=== PATIENT | female | born 1960 | race Caucasian/White ===

== ENCOUNTER → 2019-10-10 09:48 | Outpatient (CLI) | payer BC, OTHER, SELFPAY | PROVIDERS: Family Provider Family Medicine; PCP Family Medicine; Visit Provider Obstetrics & Gynecology | DX: N95.1 Menopausal and female climacteric states (principal); N39.0 Urinary tract infection, site not specified | CPT/HCPCS: 87480; 87510; 87660 ==

== ENCOUNTER → 2019-10-13 11:50 | Outpatient (CLI) | payer OTHER, SELFPAY ==
--- NOTE | 2019-10-13 11:53 | DI.US.S_ITS ---
PROCEDURE: US PELVIC COMPLETE INDICATIONS: FIBROIDS TECHNIQUE: Real-time scanning was performed of the pelvic organs, with image documentation. Additional endovaginal scanning was necessary due to incomplete visualization of the adnexal and endometrial structures by transabdominal scanning. COMPARISON: None. FINDINGS: Transabdominal scanning: Limited scanning through the kidneys shows no hydronephrosis. No pathologic free abdominal or pelvic fluid. Endovaginal scanning: Uterus: Uterus is normal in size at 6.2 x 4.8 x 5.2 cm. The endometrium measures 2.5 mm in combined thickness. There is a 4.1 x 3.4 x 4.5 cm intramural fibroid in the left uterine wall. A 1.6 x 1.3 x 1.5 cm intramural fibroid is seen in the right posterior uterine wall. Ovaries: A 9 mm simple cyst is noted in the right ovary. Right ovary measures 1.3 x 1.3 x 1.2 cm. Left ovary is not visualized. IMPRESSION: 1. Two uterine leiomyomas. 2. A 9 mm simple cyst in the right ovary. 3. Nonvisualization of right ovary. Dictated by: Anamika Brody M.D. on 10/13/2019 at 14:46 Approved by: Anamika Brody M.D. on 10/13/2019 at 14:50
== END ==
PROVIDERS: Family Provider Family Medicine; PCP Family Medicine; Visit Provider Obstetrics & Gynecology
DX: R10.2 Pelvic and perineal pain (principal); D25.1 Intramural leiomyoma of uterus; N83.291 Other ovarian cyst, right side
CPT/HCPCS: 76830; 76856

== ENCOUNTER → 2020-04-02 09:24 | Outpatient (CLI) | payer OTHER, SELFPAY ==
[2020-04-02 11:13] LABS: Add Manual Diff / Slide Review NO; Basophils Absolute Auto 0 /uL (0-100); Eosinophils Absolute Auto 0 /uL (0-450); Eosinophils Percent Auto 0.6 % (2-4); Hematocrit 40.3 % (36-46); Hemoglobin 13.7 g/dL (12.0-16.0); Lymphocytes Absolute Auto 1600 /uL (1100-4500); Lymphocytes Percent Auto 47.3 % (25-40); Mean Corpuscular HGB Conc 34.1 % (30-36); Mean Corpuscular Hemoglobin 32.5 PG (26-34); Mean Corpuscular Volume 95.4 fL (80-100); Monocytes Absolute Auto 300 /uL (0-900); Monocytes Percent Auto 8.5 % (3-14); Neutrophils Absolute Auto 1400 /uL (1500-7000); Neutrophils Percent Auto 42.6 % (50-75); Platelet Count 356 X10^3/uL (150-400); Red Blood Cell Count 4.23 X10^6/uL (4.0-5.2); Red Cell Distribution Width 12.6 % (11.6-14.8); White Blood Cell Count 3.3 X10^3/uL (4.5-11.0)
[2020-04-02 11:47] LABS: BUN Creatinine Ratio 18.8 (6-22); Blood Urea Nitrogen 9 mg/dL (7-17); Calcium 9.6 mg/dL (8.4-10.2); Carbon Dioxide 26 mmol/L (22-32); Chloride 104 mmol/L (98-107); Estimated Glomerular Filt Rate > 60.0 mL/min (>60); Glucose 89 mg/dL (80-110); HEMOLYSIS < 15 (0-50); Magnesium 2.2 mg/dL (1.6-2.3); Potassium 4.4 mmol/L (3.4-5.1); Sodium 137 mmol/L (137-145)
[2020-04-02 13:48] LABS: TSH w/ Reflex to FT4 1.34 uIU/mL (0.47-4.68)
[2020-04-02 13:49] LABS: Free T4, Direct Thyroxine 1.02 ng/dL (0.78-2.19)
== END ==
PROVIDERS: Family Provider Family Medicine; PCP Family Medicine; Referring Provider Obstetrics & Gynecology; Visit Provider Obstetrics & Gynecology
DX: Z00.00 Encounter for general adult medical examination without abnormal findings (principal)
CPT/HCPCS: 36415; 80048; 83735; 84439; 84443; 85025

== ENCOUNTER → 2020-04-04 11:56 | Outpatient (CLI) | payer OTHER, SELFPAY ==
--- NOTE | 2020-04-04 11:58 | DI.US.S_ITS ---
PROCEDURE: US THYROID INDICATIONS: ENLARGED THYROID TECHNIQUE: Real-time scanning was performed of the thyroid gland, with image documentation. COMPARISON: None. FINDINGS: Right: Thyroid lobe measures 6.3 x 2.5 x 2.5 cm, and is diffusely heterogeneous in echotexture. Left: Thyroid lobe measures 4.6 x 1.3 x 1.3 cm, and is diffusely heterogeneous in echotexture. Isthmus: 2.3 mm thick. Nodule number: 1 Location: Left mid Size: 1.2 x 0.6 x 0.8 cm. Composition: Solid Echogenicity: Hypoechoic Shape: wider than tall. Margins: Smooth Echogenic foci: None Total points: 4 ACR TI-RADS category: Moderately suspicious Nodule number: 2 Location: Left superior Size: 0.6 x 0.4 x 0.4 cm. Composition: Solid Echogenicity: Hypoechoic Shape: wider than tall. Margins: Smooth Echogenic foci: None Total points: 4 ACR TI-RADS category: Moderately suspicious Nodule number: 3 Location: Right mid and inferior Size: 4.0 x 2.1 x 2.7 cm. Composition: Solid Echogenicity: Isoechoic Shape: wider than tall. Margins: Smooth Echogenic foci: None Total points: 3 ACR TI-RADS category: Mildly suspicious Nodule number: 4 Location: Right mid Size: 1.5 x 0.7 x 1.3 cm. Composition: Solid Echogenicity: Hypoechoic Shape: wider than tall. Margins: Smooth Echogenic foci: None Total points: 4 ACR TI-RADS category: Moderately suspicious IMPRESSION: Bilateral thyroid nodules as above. Recommend sonographically directed fine needle aspiration involving the right # 3 nodule. ACR TI-RADS definitions and recommendations: TI-RADS 1 (benign): 0 points. FNA not needed. TI-RADS 2 (not suspicious): 2 points. FNA not needed. TI-RADS 3 (mildly suspicious): 3 points. * FNA if 2.5 cm or larger, follow up if 1.5 cm or larger (at 1, 3, and 5 years). TI-RADS 4 (moderately suspicious): 4-6 points. * FNA if 1.5 cm or larger, follow up if 1 cm or larger (at 1, 2, 3, and 5 years). TI-RADS 5 (highly suspicious): 7 points or more. * FNA if 1 cm or larger, follow up if 0.5 cm or larger (every year for 5 years). Dictated by: Chilo ROBERT Interpreted: Freddy Jama MD on 04/04/2020 at 13:36 Approved by: Freddy Jama M.D. on 04/04/2020 at 15:49
== END ==
PROVIDERS: Family Provider Family Medicine; PCP Family Medicine; Referring Provider Obstetrics & Gynecology; Visit Provider Obstetrics & Gynecology
DX: E04.2 Nontoxic multinodular goiter (principal)
CPT/HCPCS: 76536

== ENCOUNTER → 2020-05-14 09:55 | Outpatient (CLI) | payer OTHER, SELFPAY ==
[2020-05-15 19:13] LABS: COVID19 Sendout Not Detected (Not Detect)
== END ==
PROVIDERS: Family Provider Family Medicine; PCP Family Medicine; Visit Provider Physician Assistant
DX: Z11.9 Encounter for screening for infectious and parasitic diseases, unspecified (principal)
CPT/HCPCS: 87635

== ENCOUNTER → 2020-06-06 11:57 | Outpatient (CLI) | payer OTHER, SELFPAY ==
--- NOTE | 2020-06-06 12:19 | DI.MG.S_ITS ---
Patient Name: BIB SIDHU date: 1960 Sex: F Attending Physician: Gerda Indications: Date: 06/06/2020 12:26 At the request of: DAHIANA BELL Procedure: MM screening mammo BI BILATERAL DIGITAL SCREENING MAMMOGRAM 3D/2D WITH CAD: 06/06/2020 CLINICAL: Routine screening. Comparison is made to exams dated: 12/09/2018 mammogram, 12/23/2017 mammogram, and 09/02/2016 mammogram - [facility]. There are scattered fibroglandular elements in both breasts. Current study was also evaluated with a Computer Aided Detection (CAD) system. There is a benign calcification in the right breast. No significant masses, calcifications, or other findings are seen in either breast. There has been no significant interval change. IMPRESSION: BENIGN There is no mammographic evidence of malignancy. A 1 year screening mammogram is recommended. This exam was interpreted at Station ID: [id number]. NOTE: For mammograms, a report in lay terms will be sent to the patient. Approximately 15% of breast malignancies will not be visualized mammographically. In the management of a palpable breast mass, a negative mammogram must not discourage biopsy of a clinically suspicious lesion. Electronically Signed By: Feliberto [email or web address]:06/06/2020 13:24:41 letter sent: Normal Exam ACR BI-RADS Category 2: Benign Finding(s) 3342F
== END ==
PROVIDERS: Family Provider Family Medicine; PCP Obstetrics & Gynecology; Referring Provider Obstetrics & Gynecology; Visit Provider Obstetrics & Gynecology
DX: Z12.31 Encounter for screening mammogram for malignant neoplasm of breast (principal)
CPT/HCPCS: 77063; 77067

== ENCOUNTER → 2020-07-04 11:35 | Outpatient (CLI) | payer OTHER, SELFPAY ==
[2020-07-04 11:41] LABS: Bacteria Urine None Seen; RBC Urine None Seen (0-5/HPF)
[2020-07-04 13:01] LABS: Appearance Urine UA CLEAR; Bilirubin Urine UA NEGATIVE (NEGATIVE); Color Urine UA YELLOW; Glucose Urine UA NEGATIVE (Negative); Ketones Urine UA NEGATIVE (NEGATIVE); Leukocyte Esterase Urine UA NEGATIVE (NEGATIVE); Nitrite Urine UA NEGATIVE (Negative); Occult Blood Urine UA NEGATIVE (Negative); Protein Urine UA NEGATIVE (Negative); Specific Gravity Urine UA <=1.005 (1.000-1.035); Urobilinogen Urine UA 0.2 E.U./dL (0.2)
[2020-07-04 13:25] LABS: Squamous Epithelial Cell Urine 0-1 /HPF (0-5/HPF); WBC Urine 0-1/HPF (0-5/HPF)
== END ==
PROVIDERS: Family Provider Family Medicine; PCP Family Medicine; Referring Provider Obstetrics & Gynecology; Visit Provider Obstetrics & Gynecology
DX: R30.0 Dysuria (principal)
CPT/HCPCS: 81001; 87086

== ENCOUNTER → 2020-07-12 14:17 | Outpatient (CLI) | payer OTHER, SELFPAY ==
[2020-07-14 09:30] LABS: COVID19 Sendout Not Detected (Not Detect)
== END ==
PROVIDERS: Family Provider Family Medicine; PCP Family Medicine; Visit Provider Physician Assistant
DX: Z11.59 Encounter for screening for other viral diseases (principal)
CPT/HCPCS: 87635

== ENCOUNTER → 2020-08-16 16:27 | Outpatient (CLI) | payer OTHER, SELFPAY | PROVIDERS: Family Provider Family Medicine; PCP Family Medicine; Visit Provider Obstetrics & Gynecology | DX: R39.89 Other symptoms and signs involving the genitourinary system (principal); T81.9XXA Unspecified complication of procedure, initial encounter | CPT/HCPCS: 87070; 87205 ==

== ENCOUNTER 2020-11-06 12:36 | Emergency (ER) | payer OTHER, SELFPAY ==
[2020-11-06] VITALS (10 sets, daily range): BP systolic 114–154; BP diastolic 56–71; PULSE 77–103; RESP 13–21; TEMP 37; O2SAT 95–99
--- NOTE | 2020-11-06 12:53 | DI.RAD.S_ITS ---
PROCEDURE: XR CHEST 1V INDICATIONS: chest pain TECHNIQUE: One view of the chest was acquired. COMPARISON: None. FINDINGS: Surgical changes and devices: None. Lungs and pleura: Lungs are clear. No pleural effusions or pneumothorax. Mediastinum: Mediastinal contours appear normal. Heart size is normal. Bones and chest wall: No suspicious bony lesions. Overlying soft tissues appear unremarkable. IMPRESSION: No acute cardiopulmonary pathology. Dictated by: Charli To M.D. on 11/06/2020 at 13:00 Approved by: Charli To M.D. on 11/06/2020 at 13:11
[2020-11-06 13:23] LABS: Add Manual Diff / Slide Review NO; Basophils Absolute Auto 0 /uL (0-100); Basophils Percent Auto 0.8 % (0-2); Eosinophils Absolute Auto 0 /uL (0-450); Eosinophils Percent Auto 0.2 % (2-4); Hematocrit 41.9 % (36-46); Hemoglobin 13.9 g/dL (12.0-16.0); Lymphocytes Absolute Auto 1100 /uL (1100-4500); Lymphocytes Percent Auto 23.2 % (25-40); Mean Corpuscular HGB Conc 33.2 % (30-36); Mean Corpuscular Hemoglobin 31.6 PG (26-34); Monocytes Absolute Auto 400 /uL (0-900); Monocytes Percent Auto 8.9 % (3-14); Neutrophils Absolute Auto 3100 /uL (1500-7000); Neutrophils Percent Auto 66.9 % (50-75); Platelet Count 387 X10^3/uL (150-400); Red Blood Cell Count 4.41 X10^6/uL (4.0-5.2); Red Cell Distribution Width 12.7 % (11.6-14.8); White Blood Cell Count 4.6 X10^3/uL (4.5-11.0)
[2020-11-06 13:35] LABS: INR 1.1 (0.9-1.3); Prothrombin Time 12.5 SECONDS (10.1-12.7)
[2020-11-06 13:37] LABS: PTT Partial Thromboplastin Tim 32 SECONDS (26.4-36.2)
[2020-11-06 13:40] LABS: Alanine Aminotransferase 20 IU/L (<35); Albumin 4.7 g/dL (3.5-5.0); Albumin Globulin Ratio 1.3 (1.0-2.8); Alkaline Phosphatase 56 U/L (38-126); Aspartate Aminotransferase 29 IU/L (14-36); Bilirubin Total 0.6 mg/dL (0.2-1.3); Blood Urea Nitrogen 10 mg/dL (7-17); Calcium 9.3 mg/dL (8.4-10.2); Carbon Dioxide 27 mmol/L (22-32); Chloride 101 mmol/L (98-107); Creatine Kinase 82 U/L (30-135); Estimated Glomerular Filt Rate > 60.0 mL/min (>60); Globulin 3.6 g/dL (1.7-4.1); Glucose 95 mg/dL (80-110); HEMOLYSIS < 15 (0-50); Lipase 120 U/L (23-300); Potassium 3.7 mmol/L (3.4-5.1); Sodium 137 mmol/L (137-145); Total Protein 8.3 g/dL (6.3-8.2)
[2020-11-06 13:52] LABS: Troponin I < 0.012 ng/mL (0.01-0.034)
--- NOTE | 2020-11-06 14:16 | PC.NURSE ---
Reports numbness/tingling sensation to face, mouth and throat since receiving COVID vaccine last week. States its like when you are numb at the dentist and the feeling starts coming back. Also reports intermittently feeling heart racing.
--- NOTE | 2020-11-06 14:46 | ED_ITS ---
HPI - Arrhythmia/Palpitations <Pricila Magaña PA-C - Last Filed: 11/06/20 17:54> General Chief Complaint: Arrhythmia/Palpitations Stated Complaint: face tingling, tongue tingling, shakey, heart palp Time Seen by Provider: 11/06/20 14:04 Source: patient Mode of arrival: Ambulatory History of Present Illness HPI narrative: This is a well-appearing 60-year-old woman with a history of hypokalemia, rectal prolapse and pelvic floor surgery (3 months ago), Meniere's disease, who presents complaining of tingling sensation in her cheeks and tongue, sometimes into her arms hands and legs, intermittent palpitations, and an episode of feeling very weak and shaky today at home. She states that other than the episode of feeling weak and shaky all of her other symptoms are symptoms she has had in the past on and off she notes she has previously had low potassium levels that cause similar symptoms. She also notes that she got a COVID vaccine last week and she did have a reaction to it that included tingling sensation in her cheeks and tongue that was relieved with Benadryl. She denies syncope, chest pain, dizziness, one-sided weakness, speech change, headache, nausea, vomiting, diarrhea fevers, chills, fatigue or any other symptoms. Her notes he thinks she may have more anxiety than she realizes MD complaint: palpitations Onset (ago): week(s) Duration: intermittent Severity: similar to previous episodes Context: occurred during rest Arrhythmia history: other (History of hypokalemia) Associated symptoms: paresthesias (Cheeks, tongue and sometimes hands arms and legs) and other Related Data Home Medications Medication Instructions Recorded Confirmed spironolactone 25 mg QDAY #0 01/10/18 08/16/20 meclizine 12.5 mg tablet 12.5 mg PO DAILY PRN 04/18/20 08/16/20 vitamin B complex 1 tab PO DAILY 04/18/20 08/16/20 Previous Rx's Medication Instructions Recorded conjugated estrogens 0.625 mg/gram 0.625 mg VAG DAILY #30 gram 04/02/20 vaginal cream hydroxyzine HCl 25 mg PO TID PRN #60 tab 11/06/20 Allergies Allergy/AdvReac Type Severity Reaction Status Date / Time metronidazole [From Flagyl] AdvReac GI symptoms Verified 08/16/20 15:40 No Known Allergies Allergy Uncoded 08/16/20 15:40 Review of Systems <Prciila Magaña PA-C - Last Filed: 11/06/20 17:54> Review of Systems Narrative: GENERAL: Denies chills, fatigue, malaise, fever, sweats. HEENT: Denies sinus pain, ear pain, sore throat, difficulty swallowing, dizziness. RESPIRATORY: Denies dyspnea, cough, wheezing, hemoptysis, sputum. CARDIOVASCULAR: Denies chest pain, endorses intermittent palpitations, denies orthopnea, edema, GASTROINTESTINAL: Denies nausea, vomiting, abdominal pain, diarrhea, constipation, melena. : Denies dysuria, frequency, incontinence, hematuria, urinary retention. MUSCULOSKELETAL: denies weakness, joint pain, or bony pain SKIN: Denies rash, skin lesions, or other NEUROLOGIC: Denies weakness, headache, numbness, change in speech, confusion, seizures, incoordination, endorses tingling sensation in her cheeks and tongue, also sometimes in her arms hands and feet sometimes. PSYCHIATRIC: No concerning psychosocial issues. 12 point review of systems is negative except for those stated above ROS Unobtainable: All systems reviewed & are unremarkable except as noted in HPI and below Patient History <Pricila Magaña PA-C - Last Filed: 11/06/20 17:54> Medical History (Updated 11/06/20 @ 16:31 by Pricila Magaña PA-C) Abnormal Pap smear of cervix Frequent UTI H/O vaginal delivery Hearing loss Vision disorder Surgical History Anesthesia Breast tumor (~1982) Family History Mother History of heart disease Stroke Grandfather Cancer Social History marital status: household members: spouse occupational status: previously employed Smoking Status: Never smoker alcohol intake: current substance use type: does not use Smoking Status: Never smoker alcohol intake frequency: a few times a month Substance Use Type: does not use Exam <Pricila Magaña PA-C - Last Filed: 11/06/20 17:54> Narrative Exam Narrative: GENERAL: 60 year old patient appears stated age. Well-nourished, well-developed patient, in mild distress. HEAD: Atraumatic. Normocephalic. EYES: Pupils equal round and reactive. Extraocular motions intact. No scleral icterus. No injection or drainage. ENT: Nose without bleeding, purulent drainage. Throat without erythema, tonsillar hypertrophy or exudate. Airway patent. NECK: Trachea midline. Non tender CARDIOVASCULAR: Regular rate and rhythm without murmurs, gallops, or rubs. RESPIRATORY: Clear to auscultation. Breath sounds equal bilaterally. No wheezes, rales, or rhonchi. GASTROINTESTINAL: Abdomen soft, there is very slight tenderness in the abdomen low on the left side otherwise non-tender, nondistended. EXTREMITIES: No edema or joint tenderness. BACK: Nontender without deformity or crepitance. No flank tenderness. NEURO: AOx3. CN II-XII intact, facial sensation is intact, normal speech, gait, coordination. SKIN: No rash or erythema of visible areas Initial Vital Signs Initial Vital Signs: Vital Signs Temperature 98.6 F 11/06/20 12:50 Pulse Rate 103 H 11/06/20 12:50 Respiratory Rate 18 11/06/20 12:50 Blood Pressure 154/71 H 11/06/20 12:50 Pulse Oximetry 98 11/06/20 12:50 <Susy Brownlee DO - Last Filed: 11/07/20 12:36> Initial Vital Signs Initial Vital Signs: Vital Signs Temperature 98.6 F 11/06/20 12:50 Pulse Rate 103 H 11/06/20 12:50 Respiratory Rate 18 11/06/20 12:50 Blood Pressure 154/71 H 11/06/20 12:50 Pulse Oximetry 98 11/06/20 12:50 Course <Pricila Magaña PA-C - Last Filed: 11/06/20 17:54> Orders Ordered: ED Orders 11/06/20 12:53 XR chest 1V Stat EKG-12 Lead Stat 11/06/20 13:10 Complete Blood Count AUTO DIFF Stat Comprehensive Metabolic Panel Stat Lipase Stat Partial Thromboplastin Time Stat Prothrombin Time INR Stat Thyroid Stimulating Hormone Stat Troponin & CK Cardiac Panel Stat Vital Signs Vital signs: Vital Signs - 8 hr 11/06/20 12:50 11/06/20 13:47 11/06/20 14:00 Temperature 98.6 F Pulse Rate 103 H 80 77 Respiratory Rate 18 18 Blood Pressure 154/71 H 117/56 L Pulse Oximetry 98 98 99 11/06/20 14:24 11/06/20 14:30 11/06/20 15:00 Temperature Pulse Rate 87 80 79 Respiratory Rate 20 15 13 Blood Pressure 115/58 L 114/58 L 128/61 Pulse Oximetry 98 97 96 11/06/20 15:30 11/06/20 16:00 11/06/20 16:30 Temperature Pulse Rate 77 78 81 Respiratory Rate 13 15 21 Blood Pressure 119/60 114/58 L 126/58 L Pulse Oximetry 95 98 99 11/06/20 17:00 Temperature Pulse Rate 79 Respiratory Rate 16 Blood Pressure Pulse Oximetry 97 <Susy Brownlee DO - Last Filed: 11/07/20 12:36> Orders Ordered: ED Orders 11/06/20 12:53 XR chest 1V Stat EKG-12 Lead Stat 11/06/20 13:10 Complete Blood Count AUTO DIFF Stat Comprehensive Metabolic Panel Stat Lipase Stat Partial Thromboplastin Time Stat Prothrombin Time INR Stat Thyroid Stimulating Hormone Stat Troponin & CK Cardiac Panel Stat Vital Signs Vital signs: Vital Signs - 8 hr 11/06/20 12:50 11/06/20 13:47 11/06/20 14:00 Temperature 98.6 F Pulse Rate 103 H 80 77 Respiratory Rate 18 18 Blood Pressure 154/71 H 117/56 L Pulse Oximetry 98 98 99 11/06/20 14:24 11/06/20 14:30 11/06/20 15:00 Temperature Pulse Rate 87 80 79 Respiratory Rate 20 15 13 Blood Pressure 115/58 L 114/58 L 128/61 Pulse Oximetry 98 97 96 11/06/20 15:30 11/06/20 16:00 11/06/20 16:30 Temperature Pulse Rate 77 78 81 Respiratory Rate 13 15 21 Blood Pressure 119/60 114/58 L 126/58 L Pulse Oximetry 95 98 99 11/06/20 17:00 Temperature Pulse Rate 79 Respiratory Rate 16 Blood Pressure Pulse Oximetry 97 MDM - Arrhythmia/Palpitations <Pricila Magaña PA-C - Last Filed: 11/06/20 17:54> Differential Diagnosis Differential diagnosis: Likely palpitations, anxiety, artial fibrillation, ventricular premature beats, supraventricular tachycardia and other (Anxiety, vaccine reaction, viral illness) Medical Records Attestation: I reviewed the patient's medical records. Lab Data Attestation: I reviewed the patient's lab results. Result diagrams: 11/06/20 13:10 11/06/20 13:10 Labs: Lab Results 11/06/20 11/06/20 11/06/20 Range/Units 13:10 13:10 13:10 WBC 4.6 (4.5-11.0) X10^3/uL RBC 4.41 (4.0-5.2) X10^6/uL Hgb 13.9 (12.0-16.0) g/dL Hct 41.9 (36-46) % MCV 95.0 (80-100) fL MCH 31.6 (26-34) PG MCHC 33.2 (30-36) % RDW 12.7 (11.6-14.8) % Plt Count 387 (150-400) X10^3/uL Neut % (Auto) 66.9 (50-75) % Lymph % (Auto) 23.2 L (25-40) % [place] % (Auto) 8.9 (3-14) % Eos % (Auto) 0.2 L (2-4) % Baso % (Auto) 0.8 (0-2) % Neut # (Auto) 3100 (8757-3836) /uL Lymph # (Auto) 1100 (5208-9744) /uL [place] # (Auto) 400 (0-900) /uL Eos # (Auto) 0 (0-450) /uL Baso # (Auto) 0 (0-100) /uL PT 12.5 (10.1-12.7) SECONDS INR 1.1 (0.9-1.3) APTT 32 (26.4-36.2) SECONDS Sodium 137 (137-145) mmol/L Potassium 3.7 (3.4-5.1) mmol/L Chloride 101 (98-107) mmol/L Carbon Dioxide 27 (22-32) mmol/L BUN 10 (7-17) mg/dL Creatinine 0.50 L (0.52-1.04) mg/dL Estimated GFR > 60.0 (>60) mL/min BUN/Creatinine Ratio 20.0 (6-22) Glucose 95 (80-110) mg/dL Calcium 9.3 (8.4-10.2) mg/dL Total Bilirubin 0.6 (0.2-1.3) mg/dL AST 29 (14-36) IU/L ALT 20 (<35) IU/L Alkaline Phosphatase 56 (38-126) U/L Total Creatine Kinase 82 (30-135) U/L CK-MB (CK-2) TNP CK-MB (CK-2) Rel Index TNP Troponin I < 0.012 (0.01-0.034) ng/mL Total Protein 8.3 H (6.3-8.2) g/dL Albumin 4.7 (3.5-5.0) g/dL Globulin 3.6 (1.7-4.1) g/dL Albumin/Globulin Ratio 1.3 (1.0-2.8) Lipase 120 (23-300) U/L TSH (0.47-4.68) uIU/mL 11/06/20 Range/Units 13:10 WBC (4.5-11.0) X10^3/uL RBC (4.0-5.2) X10^6/uL Hgb (12.0-16.0) g/dL Hct (36-46) % MCV (80-100) fL MCH (26-34) PG MCHC (30-36) % RDW (11.6-14.8) % Plt Count (150-400) X10^3/uL Neut % (Auto) (50-75) % Lymph % (Auto) (25-40) % [place] % (Auto) (3-14) % Eos % (Auto) (2-4) % Baso % (Auto) (0-2) % Neut # (Auto) (5511-5478) /uL Lymph # (Auto) (5635-6947) /uL [place] # (Auto) (0-900) /uL Eos # (Auto) (0-450) /uL Baso # (Auto) (0-100) /uL PT (10.1-12.7) SECONDS INR (0.9-1.3) APTT (26.4-36.2) SECONDS Sodium (137-145) mmol/L Potassium (3.4-5.1) mmol/L Chloride (98-107) mmol/L Carbon Dioxide (22-32) mmol/L BUN (7-17) mg/dL Creatinine (0.52-1.04) mg/dL Estimated GFR (>60) mL/min BUN/Creatinine Ratio (6-22) Glucose (80-110) mg/dL Calcium (8.4-10.2) mg/dL Total Bilirubin (0.2-1.3) mg/dL AST (14-36) IU/L ALT (<35) IU/L Alkaline Phosphatase (38-126) U/L Total Creatine Kinase (30-135) U/L CK-MB (CK-2) CK-MB (CK-2) Rel Index Troponin I (0.01-0.034) ng/mL Total Protein (6.3-8.2) g/dL Albumin (3.5-5.0) g/dL Globulin (1.7-4.1) g/dL Albumin/Globulin Ratio (1.0-2.8) Lipase (23-300) U/L TSH 0.973 (0.47-4.68) uIU/mL ECG Data Attestation: I personally reviewed and interpreted this ECG as follows: Interpretation: Normal sinus rhythm 86 beats per minute, incomplete right bundle-branch block, MO interval 142, QRS 98, QT 376/QTC 449, P axis 59 are axis 8? T axis 54 MDM Narrative Medical decision making narrative: This is a very well-appearing 60-year-old woman who presents with multiple complaints including an episode of feeling weak and shaky earlier today, palpitations on and off for days, intermittent numbness and tingling feeling in her cheeks and tongue on both sides, occasional tingling feeling in her hands arms and feet and concerned that she may have low potassium or be reacting to the vaccine she received last week for COVID. She has a unremarkable neuro exam, unremarkable exam in general, labs also return unremarkable patient notes she took potassium supplement OTC yesterday and today. It is certainly possible that she could have had some mild hypokalemia to account for some of her symptoms and that her self administration increased her to a normal level today she is 3.7. I advised her it is reasonable to take a few more doses of potassium if she likes but she should not continue this on a regular basis without talking to her primary care provider. She is also notably on spironolactone for menieres. She has no symptoms suggestive of a CVA or TIA. Did have a similar-type symptoms of numbness and tingling in her tongue and face with slight facial swelling on 1 side after receiving COVID vaccine last week relieved by Benadryl. I think it is unlikely that the patient's symptoms today are connected with vaccine administration a week ago however it is potentially possible. Patient was on the monitor in the emergency department for hours with no abnormalities seen except an occasional PVC. EKG also u nremarkable. Chest x-ray unremarkable. I have low suspicion for cardiac etiology for this patient's symptoms. Quite possible that some of her symptoms are due to anxiety, discussed this with the patient and she feels this might be possible, have prescribed hydroxyzine as needed for her to see if this improves her symptoms as she did get relief with Benadryl at home previously. Advised her that she can take Benadryl if she feels that she is having any swelling or develops a rash or any airway distress should she should seek medical care immediately. Discussed emergency return precautions, follow-up plan, all questions answered. <Susy Brownlee, DO - Last Filed: 11/07/20 12:36> Lab Data Attestation: I reviewed the patient's lab results. Labs: Lab Results 11/06/20 11/06/20 11/06/20 Range/Units 13:10 13:10 13:10 WBC 4.6 (4.5-11.0) X10^3/uL RBC 4.41 (4.0-5.2) X10^6/uL Hgb 13.9 (12.0-16.0) g/dL Hct 41.9 (36-46) % MCV 95.0 (80-100) fL MCH 31.6 (26-34) PG MCHC 33.2 (30-36) % RDW 12.7 (11.6-14.8) % Plt Count 387 (150-400) X10^3/uL Neut % (Auto) 66.9 (50-75) % Lymph % (Auto) 23.2 L (25-40) % [place] % (Auto) 8.9 (3-14) % Eos % (Auto) 0.2 L (2-4) % Baso % (Auto) 0.8 (0-2) % Neut # (Auto) 3100 (2372-9135) /uL Lymph # (Auto) 1100 (8691-2162) /uL [place] # (Auto) 400 (0-900) /uL Eos # (Auto) 0 (0-450) /uL Baso # (Auto) 0 (0-100) /uL PT 12.5 (10.1-12.7) SECONDS INR 1.1 (0.9-1.3) APTT 32 (26.4-36.2) SECONDS Sodium 137 (137-145) mmol/L Potassium 3.7 (3.4-5.1) mmol/L Chloride 101 (98-107) mmol/L Carbon Dioxide 27 (22-32) mmol/L BUN 10 (7-17) mg/dL Creatinine 0.50 L (0.52-1.04) mg/dL Estimated GFR > 60.0 (>60) mL/min BUN/Creatinine Ratio 20.0 (6-22) Glucose 95 (80-110) mg/dL Calcium 9.3 (8.4-10.2) mg/dL Total Bilirubin 0.6 (0.2-1.3) mg/dL AST 29 (14-36) IU/L ALT 20 (<35) IU/L Alkaline Phosphatase 56 (38-126) U/L Total Creatine Kinase 82 (30-135) U/L CK-MB (CK-2) TNP CK-MB (CK-2) Rel Index TNP Troponin I < 0.012 (0.01-0.034) ng/mL Total Protein 8.3 H (6.3-8.2) g/dL Albumin 4.7 (3.5-5.0) g/dL Globulin 3.6 (1.7-4.1) g/dL Albumin/Globulin Ratio 1.3 (1.0-2.8) Lipase 120 (23-300) U/L TSH (0.47-4.68) uIU/mL 11/06/20 Range/Units 13:10 WBC (4.5-11.0) X10^3/uL RBC (4.0-5.2) X10^6/uL Hgb (12.0-16.0) g/dL Hct (36-46) % MCV (80-100) fL MCH (26-34) PG MCHC (30-36) % RDW (11.6-14.8) % Plt Count (150-400) X10^3/uL Neut % (Auto) (50-75) % Lymph % (Auto) (25-40) % [place] % (Auto) (3-14) % Eos % (Auto) (2-4) % Baso % (Auto) (0-2) % Neut # (Auto) (8089-6617) /uL Lymph # (Auto) (5487-8125) /uL [place] # (Auto) (0-900) /uL Eos # (Auto) (0-450) /uL Baso # (Auto) (0-100) /uL PT (10.1-12.7) SECONDS INR (0.9-1.3) APTT (26.4-36.2) SECONDS Sodium (137-145) mmol/L Potassium (3.4-5.1) mmol/L Chloride (98-107) mmol/L Carbon Dioxide (22-32) mmol/L BUN (7-17) mg/dL Creatinine (0.52-1.04) mg/dL Estimated GFR (>60) mL/min BUN/Creatinine Ratio (6-22) Glucose (80-110) mg/dL Calcium (8.4-10.2) mg/dL Total Bilirubin (0.2-1.3) mg/dL AST (14-36) IU/L ALT (<35) IU/L Alkaline Phosphatase (38-126) U/L Total Creatine Kinase (30-135) U/L CK-MB (CK-2) CK-MB (CK-2) Rel Index Troponin I (0.01-0.034) ng/mL Total Protein (6.3-8.2) g/dL Albumin (3.5-5.0) g/dL Globulin (1.7-4.1) g/dL Albumin/Globulin Ratio (1.0-2.8) Lipase (23-300) U/L TSH 0.973 (0.47-4.68) uIU/mL ECG Data Attestation: I personally reviewed and interpreted this ECG as follows: Prior ECG tracings: not available for review Interpretation: Normal sinus rhythm incomplete right bundle nonspecific change patient does not have priors for comparison. Rate of 85 MO 142, QRS 98 QTC 449. Discharge Plan Departure Patient Disposition: Home Clinical Impression: Facial tingling, Heart palpitations Activity Restrictions/Additional Instructions: Thank you for letting us be part of your care in the emergency department today. Based on your history of having low potassium I was concerned that might be go ing on today however there is no evidence of that all of your labs are actually looking very good. I also checked her thyroid today and this is in the normal range. I am not sure what the cause of your symptoms is and I would recommend following up with your primary care provider and potentially neurology if they recommend that or if you have ongoing symptoms. Certainly if you feel your symptoms are worsening do not hesitate to return or get rechecked. I recommend that you stay hydrated, it is possible but unlikely that your symptoms are associated with the vaccination he received last week for COVID but it sounds like most of the symptoms are symptoms he had previously in the past and I think we cannot make the assumption that white your experiencing recently is due to the vaccination you had. Regarding your heart be feeling like it is going fast, we did do an EKG today that looked all right and we also checked her cardiac enzymes, we also have had you on the monitor in the emergency department during her stay and we did not see any arrhythmias. I also recommend you talk to her primary care provider if you would like to consider seeing Cardiology for further evaluation sometimes it is appropriate to wear a Holter monitor to evaluate for cardiac arrhythmias over a longer period of time. There is no evidence of an emergent or life threatening illness at this time, but follow up with your doctor in 1-2 days is recommended nonetheless to continue to rule out serious underlying causes of your symptoms. Please call the office for an appointment. Please return to the Emergency Department for any worsening or persistent symptoms. Please take medications as directed. Prescriptions: New hydroxyzine HCl 25 mg tablet 25 mg PO TID PRN (Reason: anxiety) Qty: 60 RF: 0 No Action spironolactone 25 MG tablet 25 mg QDAY Qty: 0 RF: 0 Premarin 0.625 mg/gram cream 0.625 mg VAG DAILY Qty: 30 RF: 2 vitamin B complex [B Complex-Vitamin B12] Tablet 1 tab PO DAILY RF: 0 meclizine 12.5 mg tablet 12.5 mg PO DAILY PRNRF: 0 Referrals: Candy Mercado PA-C [Primary Care Provider] - <Susy Borwnlee DO - Last Filed: 11/07/20 12:36> Cosign ED Attending Cosignature Attestation: I was immediately available in the department for consultation. Documentation has been reviewed.
[2020-11-06 15:53] LABS: Thyroid Stimulating Hormone 0.973 uIU/mL (0.47-4.68)
== END 2020-11-06 17:10 | disposition home or self-care (01) ==
PROVIDERS: Emergency Medicine; Emergency Provider Student in an Organized Health Care Education/Training Program; Family Provider Family Medicine; PCP Physician Assistant Medical
DX: R20.2 Paresthesia of skin (principal); R00.2 Palpitations; R07.9 Chest pain, unspecified; R79.89 Other specified abnormal findings of blood chemistry; Z86.39 Personal history of other endocrine, nutritional and metabolic disease; Z87.19 Personal history of other diseases of the digestive system
CPT/HCPCS: 36415; 71045; 80053; 82550; 83690; 84443; 84484; 85025; 85610; 85730; 93005; 99283; 99284

== ENCOUNTER → 2021-01-06 16:24 | Outpatient (CLI) | payer OTHER, SELFPAY | PROVIDERS: Family Provider Family Medicine; PCP Physician Assistant Medical; Visit Provider Obstetrics & Gynecology | DX: N95.2 Postmenopausal atrophic vaginitis (principal) | CPT/HCPCS: 87070; 87205 ==

== ENCOUNTER → 2021-01-13 11:55 | Outpatient (CLI) | payer OTHER, SELFPAY ==
--- NOTE | 2021-01-13 11:56 | DI.US.S_ITS ---
PROCEDURE: US PELVIC COMPLETE INDICATIONS: PMB TECHNIQUE: Real-time scanning was performed of the pelvic organs, with image documentation. Additional endovaginal scanning was necessary due to incomplete visualization of the adnexal and endometrial structures by transabdominal scanning. COMPARISON: [facility], PELVIC COMPLETE, 10/13/2019, 12:19. FINDINGS: Uterus: Uterus is retroflexed and normal in size at 5.2 x 6.2 x 4.8 cm. The endometrium is not well seen, partially obscured by dominant uterine fibroids. The visible portion measures less than 2 mm. A dominant intramural fibroid measures 3.9 x 4.0 x 4.3 cm, fairly stable compared to the prior study. A right posterior intramural fibroid measures 1.5 cm in maximal diameter, stable. Ovaries: Neither ovary was seen. Other: No pathologic free abdominal or pelvic fluid. IMPRESSION: 1. Appropriate uterine size for age, but consumed by a dominant 4.3 cm intramural fibroid displacing the endometrium. 2. Small right posterior fibroid measuring 1.5 cm is stable, separate from the endometrial stripe. 3. Nonvisualization of either ovary. Dictated by: Lianet Conner M.D. on 01/13/2021 at 14:10 Approved by: Lianet Conner M.D. on 01/13/2021 at 14:15
== END ==
PROVIDERS: Family Provider Family Medicine; PCP Physician Assistant Medical; Referring Provider Obstetrics & Gynecology; Visit Provider Obstetrics & Gynecology
DX: N95.0 Postmenopausal bleeding (principal); D25.1 Intramural leiomyoma of uterus
CPT/HCPCS: 76830; 76856

== ENCOUNTER → 2021-06-07 07:56 | Outpatient (CLI) | payer OTHER, SELFPAY ==
--- NOTE | 2021-06-07 07:57 | DI.MG.S_ITS ---
BILATERAL DIGITAL SCREENING MAMMOGRAM 3D/2D WITH CAD: 06/07/2021 CLINICAL: Routine screening. Comparison is made to exams dated: 06/06/2020 mammogram - [facility], 12/09/2018 mammogram, and 12/23/2017 mammogram - [facility]. There are scattered fibroglandular elements in both breasts. Current study was also evaluated with a Computer Aided Detection (CAD) system. There is a benign calcification in the right breast. No significant masses, calcifications, or other findings are seen in either breast. There has been no significant interval change. IMPRESSION: BENIGN There is no mammographic evidence of malignancy. A 1 year screening mammogram is recommended. This exam was interpreted at Station ID: [id number]. NOTE: For mammograms, a report in lay terms will be sent to the patient. Approximately 15% of breast malignancies will not be visualized mammographically. In the management of a palpable breast mass, a negative mammogram must not discourage biopsy of a clinically suspicious lesion. Electronically Signed By: Calvin Zhong M.D., [email or web address]/[email or web address]:06/09/2021 09:06:16 letter sent: Normal Exam ACR BI-RADS Category 2: Benign Finding(s) [id number]
== END ==
PROVIDERS: Family Provider Family Medicine; PCP Physician Assistant Medical; Referring Provider Obstetrics & Gynecology; Visit Provider Obstetrics & Gynecology
DX: Z12.31 Encounter for screening mammogram for malignant neoplasm of breast (principal)
CPT/HCPCS: 77063; 77067

== ENCOUNTER → 2021-12-15 10:27 | Outpatient (CLI) | payer OTHER, SELFPAY ==
--- NOTE | 2021-12-15 10:29 | DI.US.S_ITS ---
PROCEDURE: US PELVIC COMPLETE INDICATIONS: DISCHARGE TECHNIQUE: Real-time scanning was performed of the pelvic organs, with image documentation. Additional endovaginal scanning was necessary due to incomplete visualization of the adnexal and endometrial structures by transabdominal scanning. COMPARISON: [facility], US, US PELVIC COMPLETE, 01/13/2021, 12:21. FINDINGS: Uterus: Uterus is retroverted and normal in size at 6.5 x 5 x 4.6 cm. The myometrium is heterogeneous. The endometrium measures 3.8 mm combined thickness. Small amount of fluid within the endometrial canal. At least 3 ovoid lesions are seen in the posterior aspect of the uterus, largest measuring 4.3 x 4.4 x 5.1 cm, compatible with myomatous change. Ovaries: Not visualized. No adnexal masses are seen. Other: No pathologic free abdominal or pelvic fluid. IMPRESSION: 1. Myomatous change of the uterus. 2. Small amount of fluid in the endometrial canal. We strive to produce accurate, complete, and clear reports of imaging services. To assist us in improving patient care, this report was composed using standard report templates and voice recognition software. Therefore, it may contain abnormal punctuation, insertions and/or omissions. Occasional wrong-word or sound-alike substitutions may occur. Though we review the report and make efforts to correct it, we do recommend that the report be read carefully in proper context to recognize any text inaccuracies. Dictated by: Tomi Sahni M.D. on 12/15/2021 at 12:02 Approved by: Tomi Sahni M.D. on 12/15/2021 at 12:05
== END ==
PROVIDERS: Family Provider Family Medicine; PCP Physician Assistant Medical; Referring Provider Obstetrics & Gynecology; Visit Provider Obstetrics & Gynecology
DX: N89.8 Other specified noninflammatory disorders of vagina (principal); N85.9 Noninflammatory disorder of uterus, unspecified; R10.2 Pelvic and perineal pain
CPT/HCPCS: 76830; 76856

== ENCOUNTER → 2021-12-19 12:11 | Outpatient (CLI) | payer OTHER, SELFPAY ==
[2021-12-20 08:59] LABS: Candida species Negative (Negative); Gardnerella vaginalis Negative (Negative); Trichomoas vaginalis Negative (Negative)
== END ==
PROVIDERS: Family Provider Family Medicine; PCP Physician Assistant Medical; Visit Provider Obstetrics & Gynecology
DX: N94.9 Unspecified condition associated with female genital organs and menstrual cycle (principal); N89.8 Other specified noninflammatory disorders of vagina
CPT/HCPCS: 87070; 87205; 87480; 87510; 87660

== ENCOUNTER → 2022-06-22 09:00 | Outpatient (CLI) | payer OTHER, SELFPAY ==
--- NOTE | 2022-06-22 | DI.MG.S_ITS ---
BILATERAL DIGITAL SCREENING MAMMOGRAM 3D/2D WITH CAD: 06/22/2022 CLINICAL: Routine screening. Comparison is made to exams dated: 06/07/2021 mammogram, 06/06/2020 mammogram - [facility], and 12/09/2018 mammogram - [facility]. There are scattered areas of fibroglandular density in both breasts (category b / 25%-50% glandular tissue). Current study was also evaluated with a Computer Aided Detection (CAD) system. There is a benign calcification in the right breast. No significant masses, calcifications, or other findings are seen in either breast. There has been no significant interval change. IMPRESSION: BENIGN There is no mammographic evidence of malignancy. A 1 year screening mammogram is recommended. Based on the Tyrer Cuzick model (a risk assessment model) the patient's lifetime risk is 5.7% and her 10 year risk is 2.6%. According to the ACR, ACS, and NCCN guidelines, an annual breast MRI exam along with mammogram is recommended if the patient's lifetime risk is 20% or greater. This exam was interpreted at Station ID: [id number]. NOTE: For mammograms, a report in lay terms will be sent to the patient. Approximately 15% of breast malignancies will not be visualized mammographically. In the management of a palpable breast mass, a negative mammogram must not discourage biopsy of a clinically suspicious lesion. Electronically Signed By: Vadim curtis/nemesio:06/22/2022 13:21:53 letter sent: Normal Exam ACR BI-RADS Category 2: Benign Finding(s) 3342F
== END ==
PROVIDERS: Family Provider Family Medicine; PCP Physician Assistant Medical; Referring Provider Physician Assistant Medical; Visit Provider Physician Assistant Medical
DX: Z12.31 Encounter for screening mammogram for malignant neoplasm of breast (principal)
CPT/HCPCS: 77063; 77067

== ENCOUNTER → 2022-10-22 14:55 | Outpatient (CLI) | payer OTHER, SELFPAY ==
[2022-10-24 15:11] LABS: Candida species Negative (Negative); Gardnerella vaginalis Negative (Negative); Trichomoas vaginalis Negative (Negative)
== END ==
PROVIDERS: Family Provider Family Medicine; PCP Physician Assistant Medical; Visit Provider Physician Assistant Medical
DX: N94.9 Unspecified condition associated with female genital organs and menstrual cycle (principal)
CPT/HCPCS: 87480; 87510; 87660

== ENCOUNTER → 2023-07-08 15:48 | Outpatient (CLI) | payer MEDICARE, OTHER, SELFPAY ==
--- NOTE | 2023-07-08 | DI.MG.S_ITS ---
BILATERAL DIGITAL SCREENING MAMMOGRAM 3D/2D WITH CAD: 07/08/2023 CLINICAL: Routine screening. Comparison is made to exams dated: 06/22/2022 mammogram, 06/07/2021 mammogram, 06/06/2020 mammogram - [facility], and 12/23/2017 mammogram - [facility]. There are scattered areas of fibroglandular density in both breasts (category b / 25%-50% glandular tissue). Current study was also evaluated with a Computer Aided Detection (CAD) system. There is a benign calcification in the right breast. No significant masses, calcifications, or other findings are seen in either breast. There has been no significant interval change. IMPRESSION: BENIGN There is no mammographic evidence of malignancy. A 1 year screening mammogram is recommended. Based on the Tyrer Cuzick model (a risk assessment model) the patient's lifetime risk is 5.4% and her 10 year risk is 2.6%. According to the ACR, ACS, and NCCN guidelines, an annual breast MRI exam along with mammogram is recommended if the patient's lifetime risk is 20% or greater. This exam was interpreted at Station ID: [id number]. NOTE: For mammograms, a report in lay terms will be sent to the patient. Approximately 15% of breast malignancies will not be visualized mammographically. In the management of a palpable breast mass, a negative mammogram must not discourage biopsy of a clinically suspicious lesion. Electronically Signed By: Feliberto akbar/[email or web address]:07/09/2023 08:17:02 letter sent: Normal Exam ACR BI-RADS Category 2: Benign Finding(s) 3342F
== END ==
PROVIDERS: Family Provider Family Medicine; PCP Physician Assistant Medical; Referring Provider Physician Assistant Medical; Visit Provider Physician Assistant Medical
DX: Z12.31 Encounter for screening mammogram for malignant neoplasm of breast (principal)
CPT/HCPCS: 77063; 77067

== ENCOUNTER → 2023-11-04 13:55 | Outpatient (CLI) | payer MEDICARE, OTHER, SELFPAY | PROVIDERS: Family Provider Family Medicine; PCP Physician Assistant Medical; Visit Provider Physician Assistant Medical | DX: N89.8 Other specified noninflammatory disorders of vagina (principal); N94.9 Unspecified condition associated with female genital organs and menstrual cycle | CPT/HCPCS: 87070; 87205 ==

== ENCOUNTER → 2024-07-24 08:14 | Outpatient (CLI) | payer MEDICARE, OTHER, SELFPAY ==
--- NOTE | 2024-07-24 08:16 | DI.MG.S_ITS ---
BILATERAL DIGITAL SCREENING MAMMOGRAM 3D/2D WITH CAD: 07/24/2024 CLINICAL: Routine screening. Comparison is made to exams dated: 07/08/2023 mammogram, 06/22/2022 mammogram, and 06/07/2021 mammogram - [facility]. There are scattered areas of fibroglandular density (category b / 25%-50% glandular tissue). Current study was also evaluated with a Computer Aided Detection (CAD) system. There is a benign calcification in the right breast. No significant masses, calcifications, or other findings are seen in either breast. There has been no significant interval change. IMPRESSION: BENIGN There is no mammographic evidence of malignancy. A 1 year screening mammogram is recommended. Based on the Tyrer Cuzick model (a risk assessment model) the patient's lifetime risk is 5.2% and her 10 year risk is 2.6%. According to the ACR, ACS, and NCCN guidelines, an annual breast MRI exam along with mammogram is recommended if the patient's lifetime risk is 20% or greater. This exam was interpreted at Station ID: [id number]. NOTE: For mammograms, a report in lay terms will be sent to the patient. Approximately 15% of breast malignancies will not be visualized mammographically. In the management of a palpable breast mass, a negative mammogram must not discourage biopsy of a clinically suspicious lesion. Electronically Signed By: Vadim curtis/nemesio:07/24/2024 21:14:14 letter sent: Normal Exam ACR BI-RADS Category 2: Benign
== END ==
LOC: MAMMO 08:15
PROVIDERS: Family Provider Family Medicine; PCP Physician Assistant Medical; Referring Provider Physician Assistant Medical; Visit Provider Physician Assistant Medical
DX: Z12.31 Encounter for screening mammogram for malignant neoplasm of breast (principal)
CPT/HCPCS: 77063; 77067

== ENCOUNTER → 2024-10-19 16:32 | Outpatient (CLI) | payer MEDICARE, OTHER, SELFPAY ==
[2024-10-21 14:12] LABS: Candida species Negative (Negative); Gardnerella vaginalis Negative (Negative); Trichomoas vaginalis Negative (Negative)
== END ==
PROVIDERS: Family Provider Family Medicine; PCP Physician Assistant Medical; Visit Provider Specialist
DX: N94.9 Unspecified condition associated with female genital organs and menstrual cycle (principal); N89.8 Other specified noninflammatory disorders of vagina
CPT/HCPCS: 87480; 87510; 87660

== ENCOUNTER 2025-02-19 09:18 | Day surgery (SDC) | payer MEDICARE, OTHER, SELFPAY ==
[2024-12-18 13:56] VITALS: BMI 26.3
--- NOTE | 2025-02-19 | PATH_ITS ---
[facility] Accession Number: [id number] No. of containers..01 Tissue . 01 Material submitted: . endometrium - ENDOMETRIAL CURETTING . 01 Diagnosis: ENDOMETRIAL CURETTING: Fragments of endometrial tissue and detached strips of endometrial glandular epithelium; negative for endometrioid intraepithelial neoplasia or malignancy. Metaplastic squamous mucosa; negative for dysplasia. [facility] 02/21/2025 1442 Local . 01 Electronically signed: . Divine Flores MD, Pathologist NPI- [id number] . 01 Gross description: . Received in formalin with two identifiers and endometrial curettings (the full name of the trash collector supervisor was written on the jar, authorization form received), are multiple red-brown soft tissue fragments admixed with mucohemorrhagic material received on friable Telfa paper aggregating to 2.6 x 1.7 x 0.1 cm. Filtered and submitted entirely in A1. ([id number]) /MRV 02/20/2025 1858 Local . 01 Pathologist provided ICD-10: N95.0, R93.89 . 01 CPT . 116212 Specimen Comment: A courtesy copy of this report has been sent to [phone] Performed at: [address] [address], [place], [place] [id number] MD Nam Lakhani MD Phone: [phone]
[2025-02-19] MEDS: ACETAMINOPHEN 325 MG TABLET 975 MG PO (09:39)
[2025-02-19 09:41] VITALS: BMI 25.6
[2025-02-19 09:47] VITALS: BP 134/78; PULSE 93; RESP 17; TEMP 36.3; O2SAT 97
[2025-02-19] MEDS: LACTATED RINGERS 1,000 ML 42 ML IV (09:54)
[2025-02-19] MEDS: SCOPOLAMINE 1 PATCH TOP (10:08)
--- NOTE | 2025-02-19 10:19 | PM.PREOP ---
Pre-operative Note Interval Note History & Physical reviewed/Exam performed by Physician: Yes Changes to H&P: No H&P completed within 30 days and has changed as indicated here:: 02/16/25
--- NOTE | 2025-02-19 11:23 | SUR.OPER ---
Lithotomy on padded OR bed, head on pillow, arms secured on padded arm boards at <90 degrees abduction. Legs secured in padded yellow fins stirrups.
[2025-02-19 11:41] VITALS: BP 128/65; PULSE 102; RESP 16; TEMP 36.1; O2SAT 97
[2025-02-19 11:46] VITALS: BP 116/53; PULSE 85; RESP 14; O2SAT 96
[2025-02-19 11:51] VITALS: BP 113/56; PULSE 82; RESP 16; O2SAT 97
[2025-02-19 11:56] VITALS: BP 112/54; PULSE 83; RESP 16; TEMP 36.1; O2SAT 96
[2025-02-19 12:01] VITALS: BP 116/56; PULSE 75; RESP 14; O2SAT 97
--- NOTE | 2025-02-19 12:02 | PM.GYNOP.1 ---
Operative Date/Time/Diagnoses Date of procedure: 02/19/25 Time of procedure: 12:03 Pre-op diagnosis: Postmenopausal bleeding Thickened endometrial lining on ultrasound Post-op diagnosis: same Procedure & Clinicians Procedure: Procedures Operation Date: 02/19/25 11:00 Actual Procedure Side Surgeon gildardo Hysteroscopy D&Patrice Delgado MD Indications: 64-year-old with postmenopausal bleeding and a thickened endometrial lining on ultrasound Surgeon: Cathryn Delgado Anesthesia Type: General (LMA) Operative Notes Findings: 7 week size retroverted uterus Both fallopian tube ostia observed Neither fibroid visible in the uterine lining No polyps visible Closure Type: not applicable Specimen(s): endometrial curettings Estimated blood loss (mL): 3 Blood products transfused: none Procedure in detail: After informed consent was obtained, the patient was taken to the operating room where she was placed in the dorsal supine position. After adequate LMA general anesthesia was achieved, she was placed in the dorsal lithotomy position, and prepped and draped in the usual sterile fashion. A time-out was performed. A bivalve speculum was placed into the vagina and the anterior lip of the cervix was grasped with a single-tooth tenaculum. The cervical os was sequentially dilated until the hysteroscope could pass easily into the endometrial cavity. The uterus was retroverted. The hysteroscope pass easily into the endometrial cavity. Initial inspection with the hysteroscope revealed both fallopian tube ostia. There were no submucosal fibroids. There were no polyps visible. The hysteroscope was removed. Sharp curettage was performed yielding a moderate amount of endometrial curettings. The instruments were removed from the uterus. The single-tooth tenaculum was removed from the anterior lip of the cervix. The bivalve speculum was removed from the vagina. Sponge, lap, and instrument counts were correct x2. The patient tolerated the procedure well, and was taken to PACU in stable condition. Complications: none Post-operative Condition: stable Disposition: PACU Plan for aftercare: Home after recovery
[2025-02-19] MEDS: OXYCODONE IR 5 MG TABLET PO (12:04)
[2025-02-19] MEDS: BENZOCAINE/MENTHOL 1 LOZ PKT 1 EACH PO (12:21)
== END 2025-02-19 12:56 | disposition home or self-care (01) ==
PROVIDERS: Family Provider Family Medicine; PCP Physician Assistant Medical; Referring Provider Obstetrics & Gynecology; Visit Provider Obstetrics & Gynecology
PROC: 0UDB8ZZ Extraction of Endometrium, Via Natural or Artificial Opening Endoscopic (ICD-10-PCS; CPT 58558; principal; 2025-02-19 11:00)
DX: N95.0 Postmenopausal bleeding (principal); R93.89 Abnormal findings on diagnostic imaging of other specified body structures; Z87.891 Personal history of nicotine dependence; R39.15 Urgency of urination
CPT/HCPCS: 58558; J1100; J1885; J2405; J2704; J3010

== ENCOUNTER → 2025-07-25 14:27 | Outpatient (CLI) | payer MEDICARE, OTHER, SELFPAY ==
--- NOTE | 2025-07-25 14:29 | DI.MG.S_ITS ---
MM screening mammo BI: 07/25/2025. BI-RADS: 2 CLINICAL: 65-year old female for bilateral screening mammogram. Tyrer-Cuzick lifetime risk of 3.1%. No personal or first-degree family history of breast cancer. The patient had a prior left breast biopsy. PRIOR EXAMS 07/24/2024, 07/08/2023, 06/22/2022, 06/07/2021, MAMMOGRAPHY TECHNIQUE: 2D and 3D (tomosynthesis) digital mammographic views obtained, with additional images as needed for full coverage. Current study was also evaluated with a Computer Aided Detection (CAD) system. DENSITY B. There are scattered areas of fibroglandular density. MAMMOGRAPHY FINDINGS Right: Benign-appearing calcification noted on the right. There are no suspicious masses, calcifications, or other findings in the breast. No significant change from comparison. Left: No suspicious mass, asymmetry, microcalcification, or other abnormality seen. No significant change from comparison. IMPRESSION: Right * No evidence of malignancy with benign findings. Left * No evidence of malignancy. RECOMMENDATIONS Bilateral * Annual screening mammography. OVERALL ASSESSMENT CATEGORY BI-RADS-2: Benign. The [employer] recommends annual screening mammography beginning at age 40 for women with average risk of breast cancer. ELECTRONICALLY SIGNED: Lianet Conner M.D. on 07/27/2025 at 10:34:37 AM PT Interpreting Station ID: [id number]
== END ==
LOC: MAMMO 14:28
PROVIDERS: Family Provider Family Medicine; PCP Physician Assistant Medical; Referring Provider Physician Assistant Medical; Visit Provider Physician Assistant Medical
DX: Z12.31 Encounter for screening mammogram for malignant neoplasm of breast (principal)
CPT/HCPCS: 77063; 77067

== ENCOUNTER → 2025-09-04 14:51 | Outpatient (CLI) | payer MEDICARE, OTHER, SELFPAY ==
[2025-09-06 14:36] LABS: Trichomoas vaginalis Negative (Negative)
== END ==
PROVIDERS: Family Provider Family Medicine; PCP Physician Assistant Medical; Visit Provider Obstetrics & Gynecology
DX: R10.20 Pelvic and perineal pain unspecified side (principal)
CPT/HCPCS: 81514; 87086